=== PATIENT | male | born 1980 | race African-American/Black ===

== ENCOUNTER 2022-09-01 06:26 | Emergency (ER) | payer SELFPAY ==
[2022-09-01] MEDS ORDERED: Meclizine HCl 25 MG TAB ONE (07:45)
[2022-09-01 07:56] LABS: Mean Corpuscular HGB CONC 35.5 g/dL (32.0-36.0); Mean Corpuscular Hemoglobin 31.8 pg (27.0-33.0); Mean Corpuscular Volume 89.8 fl (81.2-95.1); Mean Platelet Volume 11.4 fl (7.4-10.4); Platelet Count 203 10x3/uL (150-450); RBC Distribution Width 13.1 % (11.5-14.5); Red Blood Cell (RBC) Count 4.71 10x6/uL (4.32-5.72); White Blood Cell (WBC) Count 5.9 10x3/uL (3.5-10.5)
[2022-09-01 07:59] LABS: ALT (SGPT) 24 U/L (8-55); AST (SGOT) 41 U/L (5-34); Albumin 4.8 g/dL (3.5-5.0); Alkaline Phosphatase 86 U/L (40-110); Anion Gap 22 mmol/L (10-20); BUN (Urea Nitrogen) 12 mg/dL (8.9-20.6); Bilirubin, Total 0.3 mg/dL (0.2-1.2); Calc. Creatinine Clearance 0 mL/min (70-130); Calcium 9.5 mg/dL (7.8-10.44); Carbon Dioxide 27 mmol/L (22-29); Chloride 100 mmol/L (98-107); Estimated GFR 107; Globulin 3.5 g/dL (2.4-3.5); Glucose 85 mg/dL (70-105); Lipase 19 U/L (8-78); Potassium 4.6 mmol/L (3.5-5.1); Protein, Total 8.3 g/dL (6.0-8.3); Sodium 144 mmol/L (136-145)
[2022-09-01] MEDS ORDERED: Promethazine HCl 12.5 MG in Sodium Chloride 0.9% 50 ML IVPB SCH (08:00)
[2022-09-01 08:06] LABS: MDiff Complete? YES
[2022-09-01 08:11] LABS: Lymphocytes 44 % (21-51); Neutrophil 50 % (42-75); Reactive Lymphocytes 1 % (0-10)
[2022-09-01 08:12] LABS: Eosinophils 2 % (0-10); Monocytes 3 % (0-10); Platelet Morphology Comment Appears Adequate
[2022-09-01 08:13] LABS: RBC Morphology Normal
== END 2022-09-01 09:46 | disposition home or self-care (01) ==
LOC: EDBD 06:26 → CSHERS 06:26
DX: H81.13 Benign paroxysmal vertigo, bilateral (principal); I10 Essential (primary) hypertension
CPT/HCPCS: 80053; 83690; 85025; 93005; 96361; 96365; J2550